=== PATIENT | female | born 1970 | race Caucasian/White ===

== ENCOUNTER 2018-12-30 02:21 | Emergency (ER) | payer OTHER ==
[~2018-12-30] VITALS: Ht 162.6 cm; Wt 111.6 kg
[2018-12-30] MEDS ORDERED: KETOROLAC 60 MG/2 ML VIAL ONE (02:39)
[2018-12-30] MEDS ORDERED: diphenhydrAMINE 50 MG/ML INJ (BENADRYL) ONE (02:39)
[2018-12-30] MEDS ORDERED: PROMETHAZINE INJ 25 MG/ML (PHENERGAN) AMP ONE (02:39)
[2018-12-30] MEDS ORDERED: DEXAMETHASONE 10 MG/ML (DECADRON) 1 ML VIAL ONE (02:40)
--- NOTE | 2018-12-30 02:40 | ED Headache ---
General Chief Complaint: Head/Cervical Problems Stated Complaint: MIGRAINE History of Present Illness Date Seen by Provider: Dec 30, 2018 Time Seen by Provider: 02:37 Initial Comments Patient presents emergency department for evaluation of a left-sided postauricular headache that has been going on for weeks. She has a history of migraine headaches and says this is the same as prior migraine headaches except this one is lasting longer than usual. She went to an urgent care several weeks ago and was given a shot of Toradol stopped headache for 5 days but then it started up again. Her primary care provider gives her [place] and Relpax for her migraine headaches but says it has not been helping. She says that she has nausea and photophobia but no vomiting vision changes unilateral weakness numbness tingling fevers chills or neck stiffness. She says that she cannot sleep tonight because the headache would not go away despite her usual treatment. She says she does not follow with a neurologist. She is in no obvious distress smiling and laughing and has normal vital signs. Allergies and Home Medications Patient Home Medication List Home Medication List Reviewed: Yes Review of Systems Review of Systems Constitutional: no symptoms reported Eyes: Photophobia Respiratory: no symptoms reported Cardiovascular: no symptoms reported Gastrointestinal: nausea Musculoskeletal: no symptoms reported Skin: no symptoms reported Psychiatric/Neurological: Headache All Other Systems Reviewed Negative Unless Noted: Yes Past Mphsoex-Qollab-Aynukn Hx Patient Social History Recent Foreign Travel: No Contact w/Someone Who Travel: No Physical Exam Vital Signs Capillary Refill : Height, Weight, BMI Height: '" Weight: lbs. oz. kg; BMI Method: General Appearance: WD/WN, no apparent distress HEENT: PERRL/EOMI Neck: full range of motion, supple Cardiovascular: regular rate, rhythm Respiratory: no respiratory distress Gastrointestinal: non tender, soft Psychiatric: alert, oriented x 3 Crainal Nerves: normal speech, PERRL Coordination/Gait: normal finger to nose Motor/Sensory: no motor deficit, no sensory deficit Skin: normal color, warm/dry Progress/Results/Core Measures Progress Progress Note : Progress Note Patient given Toradol Benadryl Phenergan and Decadron and patient feels better. Her repeat neurologic exam is normal and she continues to have normal vital signs. Given patient appears well with normal vital signs benign physical exam she'll be discharged in stable condition told to follow primary care provider and/or neurologist and come back to the ED sooner with worsening pain neurologic changes or other general concerns. Departure Impression Primary Impression: Migraine Qualified Codes: G43.909 - Migraine, unspecified, not intractable, without status migrainosus Disposition: 01 HOME, SELF-CARE Condition: Stable Departure-Patient Inst. Referrals: NO,LOCAL PHYSICIAN (PCP/Family) Primary Care Physician Patient Instructions: Migraine Headache (DC) LAURA DAVALOS DO Dec 30, 2018 02:40
[2018-12-30] MEDS ORDERED: DEXAMETHASONE 4 MG/ML SDV (DECADRON) PO ONE (02:45)
[2018-12-30] MEDS ORDERED: KETOROLAC 60 MG/2 ML VIAL IM ONE (02:45)
[2018-12-30] MEDS ORDERED: diphenhydrAMINE 50 MG/ML INJ (BENADRYL) IM ONE (02:45)
[2018-12-30] MEDS ORDERED: PROMETHAZINE INJ 25 MG/ML (PHENERGAN) AMP IM ONE (02:45)
[2018-12-30 03:06] VITALS: BP 128/88
--- NOTE | 2018-12-30 03:12 | NUR ---
PT. WAS GIVEN 50 MG. BENADRYL, 25 MG. PHENERGAN, 60 MG. TORADOL, AND 10 MG. DECADRON
== END 2018-12-30 03:08 | disposition home or self-care (01) ==
LOC: EDUNIT# 02:21 → ER FS 02:24
DX: G43.909 Migraine, unspecified, not intractable, without status migrainosus (principal)

== ENCOUNTER 2019-01-12 05:32 | Outpatient (CLI) | payer OTHER ==
[~2019-01-12] VITALS: Ht 162.6 cm; Wt 111.6 kg
[2019-01-12] MEDS ORDERED: LORA10TA7 PO (11:19)
[2019-01-12] MEDS ORDERED: FLUO40CA12 PO (11:19)
[2019-01-12] MEDS ORDERED: TRIA1CAP4 PO (11:19)
[2019-01-12] MEDS ORDERED: POTA15TA9 PO (11:19)
[2019-01-12] MEDS ORDERED: FLUT9.9S NS (11:19)
[2019-01-12] MEDS ORDERED: ZOLP10TA PO (11:19)
[2019-01-12] MEDS ORDERED: PROP20TA5 PO (11:19)
[2019-01-12] MEDS ORDERED: CYCL10TA9 PO (11:19)
[2019-01-12] MEDS ORDERED: ESTR1TAB24 PO (11:19)
[2019-01-12] MEDS ORDERED: ALLO300T2 PO (11:19)
== END 2019-01-12 11:29 | disposition home or self-care (01) ==
LOC: PREOP 05:32
PROVIDERS: ATTEND Urology
DX: Z01.818 Encounter for other preprocedural examination (principal)

== ENCOUNTER 2019-01-18 07:00 | Day surgery (SDC) | payer OTHER ==
[~2019-01-18] VITALS: Ht 162.6 cm; Wt 111.6 kg
[2019-01-18] VITALS (11 sets, daily range): BP systolic 93–127; BP diastolic 54–74
[~2019-01-18 07:00] MED LIST: ALLO300T2 PO; CYCL10TA9 PO; ESTR1TAB24 PO; FLUO40CA12 PO; FLUT9.9S NS; LORA10TA7 PO; POTA15TA9 PO; PROP20TA5 PO; TRIA1CAP4 PO; ZOLP10TA PO
[2019-01-18] MEDS ORDERED: LACTATED RINGERS 1,000 ML IV PRN (07:14)
--- NOTE | 2019-01-18 07:14 | Progress Note-Pre Operative ---
Pre-Operative Progress Note H&P Reviewed The H&P was reviewed, patient examined and no changes noted. Date Seen by Provider: Jan 18, 2019 Time Seen by Provider: 07:13 Date H&P Reviewed: Jan 18, 2019 Time H&P Reviewed: 07:13 Pre-Operative Diagnosis: CYSTOCELE AND ZULEIKA KAMILLA BETANCUR MD Jan 18, 2019 07:14
[2019-01-18] MEDS ORDERED: cefTRIAXone FOR IV USE 1,000 MG in WATER (STERILE) FOR INJECTION 10 ML IV ONE (07:15)
--- NOTE | 2019-01-18 07:20 | Progress Note-Post Operative ---
Post-Operative Progess Note Surgeon (s)/Picker Box Operator (s) Surgeon KAMILLA BETANCUR MD Picker Box Operator: NONE Pre-Operative Diagnosis CYSTOCELE AND ZULEIKA Post-Operative Diagnosis SAME Procedure & Operative Findings Date of Procedure 01/18/19 Procedure Performed/Findings ANTERIOR REPAIR, PVS AND CYSTOSCOPY Anesthesia Type GENERAL Estimated Blood Loss Estimated blood loss (mL): LESS THAN 50CC Specimens/Packing Specimens Removed NONE TO PATHOLOGY Packing: ESTRACE VAGINAL PACK KAMILLA BETANCUR MD Jan 18, 2019 07:19
[2019-01-18] MEDS ORDERED: CYCLOBENZAPRINE 10 MG (FLEXERIL) TAB PO PRN (07:30)
[2019-01-18] MEDS ORDERED: ESTRADIOL VAGINAL CREAM 42.5 GM (ESTRACE) VG ONE (08:05)
[2019-01-18] MEDS ORDERED: LIDOCAINE/EPI 1%-1:100,000 (XYLOCAINE) 20ML ONE (08:05)
[2019-01-18] MEDS ORDERED: fentaNYL INJECTION 100 MCG/2 ML AMP ONE ×2 (08:26→09:02)
[2019-01-18] MEDS ORDERED: MIDAZOLAM 2 MG/2 ML (VERSED) VIAL ONE (08:26)
[2019-01-18] MEDS ORDERED: NON-FORMULARY MEDICATION 1 EA EA (Fluticasone Propionate (Flonase Allergy Relief) 1 SPRAY) NS SCH (09:00)
[2019-01-18] MEDS ORDERED: NON-FORMULARY MEDICATION 1 EA EA (Triamterene/Hydrochlorothiazid (Triamterene-Hctz 37.5-25 PO SCH (09:00)
[2019-01-18] MEDS ORDERED: NON-FORMULARY MEDICATION 1 EA EA (Potassium Citrate (Potassium Citrate ER) 15 MEQ) PO SCH (09:00)
[2019-01-18] MEDS ORDERED: PROPRANOLOL 20 MG (INDERAL) TABLET PO SCH (09:00)
[2019-01-18] MEDS ORDERED: LORATADINE (CLARITIN) 10 MG TAB PO SCH (09:00)
[2019-01-18] MEDS ORDERED: ROCURONIUM 10 MG/ML 5 ML SYRINGE IV ONE (09:07)
[2019-01-18] MEDS ORDERED: SEVOFLURANE (ULTANE) 15 ML INHAL SOLN ONE (09:07)
[2019-01-18] MEDS ORDERED: NEOSTIGMINE 3 MG/3 ML VIAL ONE ×2 (09:07→09:26)
[2019-01-18] MEDS ORDERED: GLYCOPYRROLATE 0.2 MG/ML (ROBINUL) 2 ML VIAL ONE (09:07)
[2019-01-18] MEDS ORDERED: proPOfol 200 MG/20 ML (DIPRIVAN) VIAL IV ONE (09:07)
[2019-01-18] MEDS ORDERED: LIDOCAINE PF 2% 5 ML (XYLOCAINE) VIAL ONE (09:07)
[2019-01-18] MEDS: LACTATED RINGERS 1,000 ML IV SCH ×3 (09:14→21:41)
[2019-01-18] MEDS ORDERED: KETOROLAC 30 MG/ML VIAL ONE (09:27)
[2019-01-18] MEDS: KETOROLAC 30 MG/ML VIAL IV PRN ×3 (09:35→21:47)
--- NOTE | 2019-01-18 10:40 | NUR ---
RAFI WEINBERG admitted to room 3306-1 VIA PT BED ACC BY NICOLÁS TURCIOS AFTER AN ANTERIOR REPAIR, CYSTOSCOPY AND PUBO-VAGINAL SLING TODAY BY DR. BETANCUR. SULTANARAFI L introduced to surroundings, call light, bed controls, phone, TV, temperature control, lights, meal times, smoking policy, visitor policy, side rail policy, bathrooms and showers. Patient Rights given to patient in the handbook.
--- NOTE | 2019-01-18 10:45 | NUR ---
REPORT TO MADALYN RUSSELL RN R/T THIS RN UNAVAILABLE FOR A FEW MINUTES.
--- NOTE | 2019-01-18 11:00 | NUR ---
ASSESSMENT COMPLETED. VSS. A/O X4. COLOR PINK, SKIN W/D. RESP. EASY. DENIES PAIN AT THIS TIME. DESAI PATENT TO DD WITH CLEAR YELLOW URINE. VAGINAL PACKING IN PLACE. NO BLEEDING ON V-PAD OR TAIL OF PACK. THIGH-HI SCDS ON BILATERALLY. AT BEDSIDE. ORIENTED TO SURROUNDINGS, CALL LIGHT OPERATION, AND ROOM SERVICE PROCEDURE WITH STATED UNDERSTANDING.
--- NOTE | 2019-01-18 12:00 | NUR ---
RT NOTIFIED OF NEED FOR INCENTIVE SPIROMETRY FOR THIS PT.
--- NOTE | 2019-01-18 12:30 | NUR ---
VSS. CONTINUES TO DENY PAIN. DESAI PATENT TO DD WITH CLEAR DARK YELLOW URINE. TAKING FLUIDS WELL.
[2019-01-18] MEDS ORDERED: PATIENT MAY USE OWN MEDS, ALL MC SCH (12:45)
--- NOTE | 2019-01-18 13:01 | OPERATIVE REPORT ---
DATE OF SERVICE: 01/18/2019 PREOPERATIVE DIAGNOSES: 1. Cystocele. 2. Stress urinary incontinence. POSTOPERATIVE DIAGNOSES: 1. Cystocele. 2. Stress urinary incontinence. OPERATION PERFORMED: Anterior repair, pubovaginal sling and cystoscopy. SURGEON: Liborio Betancur MD. ANESTHESIA: General. COMPLICATIONS: None. DESCRIPTION OF PROCEDURE: Under satisfactory general anesthesia, the patient in extended lithotomy position, genitalia were prepped and draped in the usual sterile fashion with a vaginal prep. Catheter was inserted and the bladder was drained. Anterior vaginal wall was infiltrated with 2% lidocaine jelly and epinephrine. An incision was made vertically in the anterior vaginal wall, mucosa was dissected off the fascia, carried all the way distal to the cervical stump. The fascia was approximated with interrupted 2-0 Vicryl. There was a good support and approximation of the fascia. Then, the pubovaginal sling, Solyx device was passed using the described technique. Sling was sitting nicely under the mid urethra with no twisting, tension and passage of a curved hemostat easily between it and the underlying tissues. Catheter was removed. A cystoscopy confirmed intact bladder. Ureteric orifices, urethra with no foreign body and presence of the sling under the mid urethra. The bladder was left half full to perform a Valsalva maneuver manually after removing the scope and it was negative. This is the James catheter was reinserted. The excess vaginal mucosa was excised sharply and then the mucosa was approximated with a running 2-0 Vicryl Rapide type suture. Estimated blood loss was less than 50 mL, none of which was replaced. Needle and sponge counts correct x2. An Estrace vaginal pack was inserted. The catheter was left indwelling and draining clear urine at all time. The patient tolerated the procedure and anesthesia well and was sent to recovery room in stable condition. Job ID: [id number] DocumentID: [id number] Dictated Date: 01/18/2019 09:40:37 Loader Operator/Ground Leader Date: 01/18/2019 13:00:45 Dictated By: LIBORIO BETANCUR MD
[2019-01-18] MEDS ORDERED: LACTATED RINGERS 1,000 ML IV ONE (13:08)
--- NOTE | 2019-01-18 13:20 | NUR ---
PT'S SPOUSE BROUGHT IN HER HOME MEDICATIONS. SENT TO PHARMACY. PT EATING FOOD BROUGHT IN BY SPOUSE.
[2019-01-18] MEDS ORDERED: HYDROcodone/APAP 10 MG/325 MG (LORTAB) TAB PO ONE (13:25)
[2019-01-18] MEDS: HYDROcodone/APAP 10 MG/325 MG (LORTAB) TAB PO PRN ×2 (13:35→19:43)
--- NOTE | 2019-01-18 13:35 | NUR ---
LORTAB 10/325 2 TABLETS P.O. FOR C/O PELVIC PRESSURE/DISCOMFORT.
[2019-01-18] MEDS: FLUOXETINE 40 MG CAPSULE PO SCH (14:28)
[2019-01-18] MEDS: TRIAMTERENE HCTZ PO SCH (14:29)
[2019-01-18] MEDS: ESTRADIOL 1 MG TAB (ESTRACE) PO SCH (14:31)
[2019-01-18] MEDS: PROPRANOLOL 20 MG (INDERAL) TABLET PO SCH ×2 (14:33→23:54)
[2019-01-18] MEDS: ALLOPURINOL 300 MG (ZYLOPRIM) TAB PO SCH (14:33)
--- NOTE | 2019-01-18 15:00 | NUR ---
PERICARE PERFORMED WITH PAD CHANGE. LT VAGINAL BLEEDING NOTED. VAGINAL PACKING INTACT.
--- NOTE | 2019-01-18 16:30 | NUR ---
RESTING WITH EYES CLOSED. ROOM DARKENED PER PT REQUEST.
--- NOTE | 2019-01-18 18:00 | NUR ---
GOOD URINE OUTPUT. URINE MORE DILUTE AT THIS TIME.
--- NOTE | 2019-01-18 18:15 | NUR ---
VAGINAL PACKING REMAINS INTACT. MINIMAL VAGINAL BLEEDING.
--- NOTE | 2019-01-18 18:38 | NUR ---
DR. BETANCUR NOTIFIED OF PT'S DESIRE NOT TO TAKE FLONASE AND POTASSIUM UNTIL SHE LEAVES TOMORROW. ORDER TO D/C.
[2019-01-18] MEDS ORDERED: NON-FORMULARY MEDICATION 1 EA EA (Zolpidem Tartrate (Ambien) 10 MG) PO SCH (21:00)
[2019-01-18] MEDS: ZOLPIDEM 5 MG (AMBIEN) TAB PO SCH ×2 (23:55→23:59)
[2019-01-19] VITALS: BP 84/55
--- NOTE | 2019-01-19 | NUR ---
Pt took own ambien at this time. 10mg PO.
[2019-01-19] MEDS: HYDROcodone/APAP 10 MG/325 MG (LORTAB) TAB PO PRN ×2 (01:50→08:42)
[2019-01-19 04:00] VITALS: BP 100/63
[2019-01-19] MEDS: KETOROLAC 30 MG/ML VIAL IV PRN ×2 (04:12→08:42)
[2019-01-19] MEDS ORDERED: LEVOFLOXACIN 250 MG/50 ML IVPB 50 ML IV SCH (07:20)
[2019-01-19 08:08] VITALS: BP 92/48
--- NOTE | 2019-01-19 08:25 | NUR ---
up to BR with standby assist x3. tolerated well. unable to void @ time. will cont to monitor.
[2019-01-19] MEDS: ESTRADIOL 1 MG TAB (ESTRACE) PO SCH (08:27)
[2019-01-19] MEDS: PROPRANOLOL 20 MG (INDERAL) TABLET PO SCH (08:28)
[2019-01-19] MEDS: FLUOXETINE 40 MG CAPSULE PO SCH (08:29)
[2019-01-19] MEDS: TRIAMTERENE HCTZ PO SCH (08:29)
[2019-01-19] MEDS: ALLOPURINOL 300 MG (ZYLOPRIM) TAB PO SCH (08:31)
--- NOTE | 2019-01-19 08:35 | NUR ---
bladder scan done. 44ml noted. pt reports cramping. scheduled and prn medications given, see eMar for further.
--- NOTE | 2019-01-19 10:05 | NUR ---
up to BR. voided, missed urine collection hat.
--- NOTE | 2019-01-19 10:10 | NUR ---
PVR of 110cc urine noted.
--- NOTE | 2019-01-19 10:55 | NUR ---
here. update given on pt's status. dismissal order received.
--- NOTE | 2019-01-19 11:00 | NUR ---
up to BR. 450cc urine noted. PVR of 46cc noted.
[2019-01-19] MEDS ORDERED: CIPR-225 PO (11:15)
--- NOTE | 2019-01-19 11:31 | Progress Note - Urology ---
Progress Note-Urology Progress Notes/Assess & Plan Progress/Assessment & Plan VOIDING WELL. EMPTIES WELL. PVR 46CC. DRY, HAPPY. HOME WITH INSTRUCTIONS Final Diagnosis CYSTOCELE AND INCONTINENCE KAMILLA BETANCUR MD Jan 19, 2019 11:31
--- NOTE | 2019-01-19 11:34 | NUR ---
dismissal instructions given, verbalizes understanding. reviewed follow up appointment & Rx's. signature page signed, placed on chart.
[2019-01-19 12:21] VITALS: BP 96/52
--- NOTE | 2019-01-19 12:45 | NUR ---
Cipro Rx called into [facility] pharmacy in [place], [place] per pt's request. 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 pt stable with no sx's of distress noted.
== END 2019-01-19 12:45 | disposition home or self-care (01) ==
LOC: SDC 07:00 → WS 10:40 → SDC 01-19 12:45
PROVIDERS: ATTEND Urology
DX: N81.10 Cystocele, unspecified (principal); G43.909 Migraine, unspecified, not intractable, without status migrainosus; Q61.5 Medullary cystic kidney; I10 Essential (primary) hypertension; F32.9 Major depressive disorder, single episode, unspecified; Z88.0 Allergy status to penicillin; Z90.710 Acquired absence of both cervix and uterus; Z90.79 Acquired absence of other genital organ(s); Z90.722 Acquired absence of ovaries, bilateral; Z79.52 Long term (current) use of systemic steroids; Z79.899 Other long term (current) drug therapy
CPT/HCPCS: 87081; 94664

== ENCOUNTER → 2019-01-24 | Outpatient (CLI) | payer OTHER ==
--- NOTE | 2019-01-18 12:46 | Anesthesia-General Post-Op ---
General Patient Condition Mental Status/LOC: Same as Preop Cardiovascular: Satisfactory Nausea/Vomiting: Absent Respiratory: Satisfactory Pain: Controlled Complications: Absent Post Op Complications Complications None Follow Up Care/Instructions Patient Instructions None needed. Anesthesia/Patient Condition Patient Condition Patient is doing well, no complaints, stable vital signs, no apparent adverse anesthesia problems. No complications reported per nursing. KENN MOODY CRNA Jan 18, 2019 12:46
[~2019-01-24] MED LIST changes: +CIPR-225 PO; +HYDROmorphone 2 MG/ML VIAL (DILAUDID) IV ONE; +ONDANSETRON 4 MG/2 ML (SDV) Z0FRAN IVP PRN
--- NOTE | 2019-01-24 11:23 | Diagnostic Imaging Report ---
PROCEDURE: MR imaging of the brain without contrast. TECHNIQUE: Multiplanar, multisequence MR imaging of the brain was performed without contrast. INDICATION: Migraine headaches. No prior studies are available for comparison. FINDINGS: The ventricles and sulci are within normal limits. No diffusion restriction is seen. Normal expected flow-voids within the carotid siphons are seen. There is a small focus of subcortical T2 and FLAIR signal in the right frontoparietal lobe. Findings are nonspecific but could be owing to chronic microvascular ischemia. There is no midline shift. There is no acute intra-axial or extra-axial hemorrhage identified. Corpus callosum is unremarkable. The sella and parasellar structures are unremarkable. IMPRESSION: Essentially unremarkable noncontrast MRI of the brain. Dictated by: Dictated on workstation # [id number]
== END ==
LOC: RAD 10:03
PROVIDERS: ATTEND Nurse Practitioner Family
DX: G43.909 Migraine, unspecified, not intractable, without status migrainosus (principal)
CPT/HCPCS: 70551

== ENCOUNTER → 2019-03-18 | Outpatient (CLI) | payer OTHER ==
[~2019-03-18] MED LIST changes: -HYDROmorphone 2 MG/ML VIAL (DILAUDID) IV ONE; -ONDANSETRON 4 MG/2 ML (SDV) Z0FRAN IVP PRN
== END | disposition home or self-care (01) ==
LOC: PREOP 14:28
PROVIDERS: ATTEND Surgery
DX: Z01.818 Encounter for other preprocedural examination (principal)

== ENCOUNTER 2019-03-23 08:34 | Day surgery (SDC) | payer OTHER ==
--- NOTE | 2019-03-16 06:33 | HISTORY AND PHYSICAL ---
DATE OF SERVICE: 03/09/2019 DATE OF SURGERY: 03/23/2019 HISTORY OF PRESENT ILLNESS: The patient is a 48-year-old female who is being seen in need of a screening colonoscopy. The patient reports that she did have a colonoscopy approximately 20 years ago and reports at that time, they did find some diverticulosis. She reports that since that time she has not had any diarrhea, but has had some occasional issues with constipation. She does report that she will at times gets some occasional episodes of bright red blood in her stool and reports that she is constipated and believed this to be hemorrhoidal. She does report a family history of colon cancer with her maternal grandfather having the disease. She denies any abdominal pain. She reports that she did recently have her fecal occult blood obtained, which did come back positive. PAST MEDICAL HISTORY: Endometriosis, anxiety, depression, migraines, and renal calculi. PAST SURGICAL HISTORY: Open complete hysterectomy in 2001, in 1995, laparoscopic Porsche-en-Y gastric bypass in 2005, abdomioplasty with a bilateral breast lift and removal of excess skin from upper arms in 2007, bladder sling placement in 01/2019. ALLERGIES: PENICILLIN. MEDICATIONS: Prozac, Ambien, Inderal, Dyazide and allopurinol. SOCIAL HISTORY: Negative for smoke, social for alcohol. FAMILY HISTORY: Mother, ovarian cancer. Paternal grandfather, colon cancer. Maternal and paternal grandmother had a myocardial infarction. Vital signs - blood pressure is 132/80. Current weight is 246, height 5 feet 3 inches. REVIEW OF SYSTEMS: This is a well-nourished female, in no acute distress. She is not experiencing any shortness of breath or difficulty breathing. No chest pain, palpitations or diaphoresis. No nausea, vomiting or abdominal pain. No diarrhea, but does report a history of constipation. She does report occasional episodes of bright red blood per rectum. No dark tarry stools. No fever or chills. No recent inadvertent weight loss. All other review of systems is negative. PHYSICAL EXAMINATION: CHEST: Clear. Good breath sounds bilaterally. HEART: Regular, no murmurs. EXTREMITIES: No lower extremity edema. Negative Homans sign. HEENT: Scleral icterus. No cervical or axillary adenopathy. ABDOMEN: Soft, nontender, nondistended. SKIN: Warm, dry and pink. NEUROLOGIC: Awake, alert, and oriented x3. ASSESSMENT AND PLAN: A 48-year-old female who is in need of a screening colonoscopy. The risks and benefits of the procedure as well as the procedure and home care instructions were explained to the patient. The patient verbalized understanding of instructions and agrees to this plan. At this time, we will proceed with scheduling the patient for a screening colonoscopy. Job ID: [id number] DocumentID: [id number] Dictated Date: 03/09/2019 14:00:32 Fondant Puff Maker Date: 03/09/2019 15:06:48 Dictated By: CLIVE MURPHY
[~2019-03-23] VITALS: Ht 160 cm; Wt 123.0 kg
[2019-03-23] VITALS (13 sets, daily range): BP systolic 104–131; BP diastolic 56–85
[2019-03-23] MEDS ORDERED: NS IV 500 ML 500 ML IV PRN (08:36)
[2019-03-23] MEDS ORDERED: NS IV 500 ML 500 ML ONE (08:43)
[2019-03-23] MEDS ORDERED: LIDOCAINE JELLY 2% 6 ML SYRINGE MM PRN (08:45)
[2019-03-23] MEDS ORDERED: fentaNYL INJECTION 100 MCG/2 ML AMP IVP ONE (08:45)
[2019-03-23] MEDS ORDERED: fentaNYL INJECTION 100 MCG/2 ML AMP ONE (10:28)
[2019-03-23] MEDS ORDERED: MIDAZOLAM 5 MG/5 ML (VERSED) VIAL ONE ×3 (10:29→10:56)
[2019-03-23] MEDS ORDERED: LIDOCAINE JELLY 2% 6 ML SYRINGE ONE (10:29)
[2019-03-23] MEDS: MIDAZOLAM 5 MG/5 ML (VERSED) VIAL IV PRN ×4 (10:33→10:52)
--- NOTE | 2019-03-23 10:47 | Progress Note-Pre Operative ---
Pre-Operative Progress Note H&P Reviewed The H&P was reviewed, patient examined and no changes noted. Date Seen by Provider: Mar 23, 2019 Time Seen by Provider: 10:00 Date H&P Reviewed: Mar 23, 2019 Time H&P Reviewed: 10:00 Pre-Operative Diagnosis: screening o SANTOSH BARBOSA MD Mar 23, 2019 10:47 POS
--- NOTE | 2019-03-23 10:47 | Conscious Sedation/ASA ---
Conscious Sedation Pre-Proced Time 10:00 ASA Score 2 For ASA 3 and 4: Consider anesthesia and medical clearance. Also, for patients with a history of failed moderate sedation consider anesthesia. Airway Lungs Heart ASA score ASA 1: a normal healthy patient ASA 2: a patient with a mild systemic disease (mid diabetes, controlled hypertension, obesity ASA 3: a patient with a severe systemic disease that limits activity (angina, COPD, prior Myocardial infarction) ASA 4: a patient with an incapacitating disease that is a constant threat to life (CHF, renal failure) ASA 5: a moribund patient not expected to survive 24 hrs. (ruptured aneurysm) ASA 6: a declared brain- patient whose organs are being harvested. For emergent operations, add the letter E after the classification Mallampati Classification Grade 2 Sedation Plan Analgesia, Amnesia, Plan communicated to team members, Discussed options with patient/fam, Discussed risks with patient/fam The patient is an appropriate candidate to undergo the planned procedure, sedation, and anesthesia. The patient immediately re-assessed prior to indication. SANTOSH BARBOSA MD Mar 23, 2019 10:47 POS
--- NOTE | 2019-03-23 10:49 | Discharge Inst-Surgical ---
D/C Lap Instructions-CHELSEY Follow Up Activity as tolerated Avoid Alcohol, Caffeine, Spicy Mogul and Acid foods. Drink 64 fluid oz or more of fluids per day. Symptoms to Report: Fever over 101 degree F, Nausea/Vomiting If any problems/questions: Contact your physician or go to Emergency Room SANTOSH BARBOSA MD Mar 23, 2019 10:49 POS
[2019-03-23] MEDS ORDERED: ONDANSETRON 4 MG/2 ML (SDV) Z0FRAN IVP PRN (11:00)
[2019-03-23] MEDS ORDERED: HYDROcodone/APAP 5 MG/325 MG (LORTAB) TAB PO PRN (11:00)
[2019-03-23] MEDS ORDERED: morphine INJ 10 MG/ML 1ML (SYR OR VIAL) IVP PRN ×2 (11:00)
[2019-03-23] MEDS ORDERED: ACETAMINOPHEN 325 MG TABLET PO PRN (11:00)
--- NOTE | 2019-03-23 11:23 | Progress Note-Post Operative ---
Post-Operative Progess Note Surgeon (s)/Change Director (s) Surgeon SANTOSH BARBOSA MD Change Director: none Pre-Operative Diagnosis screening colo Post-Operative Diagnosis mild chronic stage 1 ext and int hemorrhoids, mild-moderate sigmoid diverticulosis. Procedure & Operative Findings Date of Procedure 03/23/19 Procedure Performed/Findings colonoscopy Anesthesia Type cs Estimated Blood Loss Estimated blood loss (mL): minimal Specimens/Packing Specimens Removed none SANTOSH BARBOSA MD Mar 23, 2019 11:23 POS
--- NOTE | 2019-03-23 14:51 | OPERATIVE REPORT ---
DATE OF SERVICE: 03/23/2019 ATTENDING PRIMARY LINEN ROOM CUSTODIAN: Lianna Thornton APRN PREOPERATIVE DIAGNOSIS: Screening colonoscopy. POSTOPERATIVE DIAGNOSES: Mild chronic stage I external and internal hemorrhoids, mild to moderate sigmoid diverticulosis. PROCEDURE: Colonoscopy. SURGEON: Santosh Barbosa MD ANESTHESIA: Conscious sedation. ESTIMATED BLOOD LOSS: Minimal. FINDINGS: Mild chronic stage I external and internal hemorrhoids, mild to moderate sigmoid diverticulosis. DISPOSITION: The patient tolerated the procedure well. INDICATIONS: The patient is a 48-year-old female in need of a screening colonoscopy. She did have a colonoscopy approximately 20 years ago due to crampy abdominal pain. At that time, she was having issues with endometriosis. At that time, the colonoscopy did show some diverticulosis; however, no other abnormalities. She does have a remote family history of colon cancer with her maternal grandfather having the disease. She also did have a Hemoccult test done, which was positive. DESCRIPTION OF PROCEDURE: The patient was brought to the endoscopy suite, laid in the left lateral decubitus position. After adequate IV pain and sedative medications and conscious sedation anesthesia, a digital rectal examination was performed. Mild chronic stage I external and internal hemorrhoids were identified, which were not actively edematous nor inflamed and no bleeding. Normal sphincter tone was felt and there were no palpable masses. The endoscope was then intubated to the anus and rectum was gently insufflated. The endoscope was then advanced through the valves of [place] of the rectum with no polyps or any neoplasms identified. Through the sigmoid colon, mild to moderate sigmoid diverticulosis was identified. There were no mucosal inflammatory changes to indicate any active diverticulitis. The endoscope was then advanced to the remainder of the descending, transverse and ascending colon to the cecum. These segments were normal. There were no polyps nor any neoplasms identified throughout the colon or rectum. The endoscope was then slowly withdrawn while taking a second look and suctioning of residual air with no additional findings. The patient tolerated the procedure well. We will recommend medical management with a high fiber diet with 25 grams of fiber daily as well as significant amounts of water to promote soft stools on a daily basis. The goal is to prevent any complications of diverticulosis. No polyps or any neoplasms identified and she does not need another colonoscopy for another 10 years if she is asymptomatic. Job ID: [id number] DocumentID: [id number] Dictated Date: 03/23/2019 11:13:34 Enterprise Analyst Date: 03/23/2019 14:50:21 Dictated By: SANTOSH BARBOSA MD
== END 2019-03-23 11:40 | disposition home or self-care (01) ==
LOC: ENDO 08:34
PROVIDERS: ATTEND Surgery
DX: Z12.11 Encounter for screening for malignant neoplasm of colon (principal); K64.0 First degree hemorrhoids; K64.8 Other hemorrhoids; K57.30 Diverticulosis of large intestine without perforation or abscess without bleeding; F41.9 Anxiety disorder, unspecified; F32.9 Major depressive disorder, single episode, unspecified; G43.909 Migraine, unspecified, not intractable, without status migrainosus; Z88.0 Allergy status to penicillin; Z90.710 Acquired absence of both cervix and uterus; Z79.899 Other long term (current) drug therapy; Z80.41 Family history of malignant neoplasm of ovary; Z80.0 Family history of malignant neoplasm of digestive organs; Z82.49 Family history of ischemic heart disease and other diseases of the circulatory system

== ENCOUNTER 2019-03-30 07:16 | Emergency (ER) | payer OTHER ==
[~2019-03-30] VITALS: Ht 162 cm; Wt 117.0 kg
[2019-03-30 07:51] LABS: BILIRUBIN,URINE NEGATIVE (NEGATIVE); CLARITY,URINE SL CLOUDY; COLOR,URINE YELLOW; GLUCOSE, URINE (UA) NEGATIVE (NEGATIVE); KETONES,URINE NEGATIVE (NEGATIVE); LEUKOCYTE ESTERASE ,URINE 2+ (NEGATIVE); NITRITE,URINE NEGATIVE (NEGATIVE); PH,URINE 6.5 (5-9); PROTEIN,URINE NEGATIVE (NEGATIVE)
[2019-03-30 07:59] LABS: BACTERIA,URINE FEW /HPF; SQUAMOUS EPITHELIAL CELL,UR 0-2 /HPF; WBC,URINE 25-50 /HPF
[2019-03-30] MEDS ORDERED: CIPR500T4 PO (08:16)
[2019-03-30] MEDS ORDERED: PHEN-640 PO (08:16)
--- NOTE | 2019-03-30 08:17 | ED GU-Female ---
General Chief Complaint: - Urinary Stated Complaint: PAINFUL URINATION; Nursing Triage Note: AMB TO ROOM C/O UTI SYMPTOMS WITH BLOOD IN URINE. Nursing Sepsis Screen: No Definite Risk Source: patient Exam Limitations: no limitations History of Present Illness Date Seen by Provider: Mar 30, 2019 Time Seen by Provider: 07:31 Initial Comments This 48-year-old woman presents to the emergency room with complaints of he maturia, dysuria, and frequency that started around 02:00. In January she had a bladder sling and repair performed by Dr. Betancur. Last week she had a colonoscopy. Pain seems to be in the urethral area and is most intense immediately after urination. She also complains of pelvic aching which she identifies as her bladder. She presently takes a thiazide diuretic and allopurinol for prevention of kidney stones. She does not believe this pain feels like a kidney stone. She also takes propranolol for migraine prophylaxis. She had an appointment with Dr. Betancur on Thursday to follow-up from her surgery but did not go due to the severe winter weather. She denies any fevers. Her primary care provider is Lianna Israel at [facility] in [place]. Allergies and Home Medications Allergies Coded Allergies: Penicillins (Verified Allergy, Unknown, FROM CHILDHOOD, 01/12/19) Home Medications Allopurinol 300 Mg Tablet, 300 MG PO DAILY, (Reported) Ciprofloxacin HCl 500 Mg Tablet, 500 MG PO BID Prescribed by: LUCAS POPE on 03/30/19 0816 Cyclobenzaprine HCl 10 Mg Tablet, 10 MG PO PRN PRN for SPASMS, (Reported) Estradiol 1 Mg Tablet, 1 MG PO DAILY, (Reported) Fluoxetine HCl 40 Mg Capsule, 40 MG PO DAILY, (Reported) Fluticasone Propionate 9.9 Ml [place].susp, 1 SPRAY NS DAILY, (Reported) 1 SPRAY EACH NARE DAILY Loratadine 10 Mg Tablet, 10 MG PO DAILY, (Reported) Phenazopyridine HCl 200 Mg Tablet, 1 TAB PO TID PRN for pain Prescribed by: LUCAS POPE on 03/30/19 08 Potassium Citrate 15 Meq Tab, 15 MEQ PO BID, (Reported) Propranolol HCl 20 Mg Tablet, 20 MG PO TID, (Reported) Triamterene/Hydrochlorothiazid 1 Each Capsule, 1 EACH PO DAILY, (Reported) Zolpidem Tartrate 10 Mg Tablet, 10 MG PO HS, (Reported) Patient Home Medication List Home Medication List Reviewed: Yes Review of Systems Review of Systems Constitutional: no symptoms reported EENTM: no symptoms reported Respiratory: no symptoms reported Cardiovascular: no symptoms reported Gastrointestinal: see HPI Genitourinary: see HPI : No Musculoskeletal: no symptoms reported Skin: no symptoms reported Psychiatric/Neurological: No Symptoms Reported Endocrine: No Symptoms Reported Past Tlvxhmz-Qnyxsq-Efrwum Hx Past Med/Social Hx: Reviewed and Corrections made Patient Social History Alcohol Use: Occasionally Uses Alcohol Beverage of Choice: Beer Recreational Drug Use: No Smoking Status: Never a Smoker 2nd Hand Smoke Exposure: No Recent Foreign Travel: No Contact w/Someone Who Travel: No Recent Infectious Disease Expo: No Recent Hopitalizations: No Immunizations Up To Date Date of Influenza Vaccine: Feb 22, 2018 Seasonal Allergies Seasonal Allergies: Yes Past Medical History Surgeries: Yes (GASTRIC BYPASS, KIDNEY STONES-SEVERAL, BODY LIFT, BREAST AND ARM LIFT) Abdominal (colonoscopy), Bladder Surgery (bladder sling and pelvic repair), Section, Hysterectomy, Oophorectomy Respiratory: No Cardiac: No Neurological: Yes Headaches /Migraines Female Reproductive Disorders: Denies Sexually Transmitted Disease: No HIV/AIDS: No Genitourinary: Yes (CYSTOCELE) Kidney Stones Gastrointestinal: No Musculoskeletal: No Endocrine: No HEENT: Yes (GLASSES/CONTACTS) Loss of Vision: Denies Hearing Impairment: Denies Cancer: No Psychosocial: Yes Depression Integumentary: No Blood Disorders: No Adverse Reaction/Blood Tranf: No (N/A) Physical Exam Vital Signs Vital Signs - First Documented 03/30/19 03/30/19 07:28 08:23 Temp 36.1 Pulse 84 Resp 18 B/P (MAP) 128/106 (113) Pulse Ox 97 O2 Delivery Room Air Capillary Refill : Less Than 3 Seconds Height, Weight, BMI Height: 5'4.00" Weight: 246lbs. 0.0oz. [id number]; 44.00 BMI Method:Stated General Appearance: WD/WN, no apparent distress HEENT: normal ENT inspection Neck: normal inspection Cardiovascular: regular rate, rhythm, no edema, no murmur Respiratory: lungs clear, normal breath sounds, no respiratory distress Gastrointestinal: normal bowel sounds, soft, tenderness (minimal in the suprapubic region) Back: no CVA tenderness Extremities: normal inspection, no pedal edema Neurologic/Psychiatric: clinical research tech II-XII nml as tested, no motor/sensory deficits, alert, normal mood/affect, oriented x 3 Skin: normal color, warm/dry Progress/Results/Core Measures Suspected Sepsis Recent Fever Within 48 Hours: No Infection Criteria Present: None New/Unexplained Altered Menta: No Sepsis Screen: No Definite Risk SIRS Temperature: Pulse: 84 Respiratory Rate: 18 Blood Pressure 128 /106 Mean: 113 Results/Orders Lab Results Laboratory Tests Test 03/30/19 07:42 Range/Units Urine Color YELLOW Urine Clarity SL CLOUDY Urine pH 6.5 5-9 Urine Specific [place] 1.010 L 1.016-1.022 Urine Protein NEGATIVE NEGATIVE Urine Glucose (UA) NEGATIVE NEGATIVE Urine Ketones NEGATIVE NEGATIVE Urine Nitrite NEGATIVE NEGATIVE Urine Bilirubin NEGATIVE NEGATIVE Urine Urobilinogen 0.2 < = 1.0 MG/DL Urine Leukocyte Esterase 2+ H NEGATIVE Urine RBC (Auto) 3+ H NEGATIVE Urine RBC 5-10 H /HPF Urine WBC 25-50 H /HPF Urine Squamous Epithelial Cells 0-2 /HPF Urine Crystals NONE /LPF Urine Bacteria FEW H /HPF Urine Casts NONE /LPF Urine Mucus NEGATIVE /LPF Urine Culture Indicated YES My Orders Orders - LUCAS EDGAR MD Ua Culture If Indicated (03/30/19 07:32) Urine Culture (03/30/19 07:42) Vital Signs/I&O 03/30/19 03/30/19 07:28 08:23 Temp 36.1 Pulse 84 76 Resp 18 18 B/P (MAP) 128/106 (113) 114/75 Pulse Ox 97 94 O2 Delivery Room Air Capillary Refill : Less Than 3 Seconds Blood Pressure Mean: 113 POS Progress Note : Progress Note UA was suggestive of urinary tract infection. Symptoms would suggest lower urinary tract pathology rather than ureteral stone. Cipro was prescribed due to penicillin allergy. Peridium was prescribed for the pain. See discharge instructions. Departure Impression Primary Impression: Urinary tract infection Qualified Codes: N39.0 - Urinary tract infection, site not specified; R31.9 - Hematuria, unspecified Disposition: 01 HOME, SELF-CARE Condition: Improved Departure-Patient Inst. Decision time for Depature: 08:14 Referrals: NO,LOCAL PHYSICIAN (PCP) Primary Care Physician LIANNA MAHAJAN APRN (Family) Primary Care Physician Patient Instructions: Urinary Tract Infection, Adult (DC) Add. Discharge Instructions: Complete your antibiotics as prescribed. Drink plenty of clear liquids and urinate frequently. For prevention of urinary tract infections, please wipe front to back when using the restroom. Urinate after intercourse. Drink plenty of clear liquids. Follow-up with your primary care provider or Dr. Betancur to review urine culture results. Results may be available as early as Thursday. Return to the emergency room if you have worsening symptoms including increasing pain, increasing bleeding, development of fever, etc. Pyridium may be used to reduce bladder and urethral pain. Please be advised this may turn your urine orangeish or reddish color. All discharge instructions reviewed with patient and/or family. Voiced understanding. Scripts Phenazopyridine HCl (Pyridium) 200 Mg Tablet 1 TAB PO TID PRN for pain, #10 TAB Prov: LUCAS EDGAR MD 03/30/19 Ciprofloxacin HCl (Ciprofloxacin HCl) 500 Mg Tablet 500 MG PO BID, #14 TAB Prov: LUCAS EDGAR MD 03/30/19 Copy Copies To 1: DADA GARNICA DO Copies To 2: KAMILLA BETANCUR MD, JOSHUA T MD Mar 30, 2019 08:17 POS
[2019-03-30 08:23] VITALS: BP 114/75
== END 2019-03-30 08:23 | disposition home or self-care (01) ==
LOC: EDUNIT# 07:16 → ER 07:17
DX: N39.0 Urinary tract infection, site not specified (principal); G43.909 Migraine, unspecified, not intractable, without status migrainosus; F32.9 Major depressive disorder, single episode, unspecified; Z87.442 Personal history of urinary calculi; Z88.0 Allergy status to penicillin; Z79.52 Long term (current) use of systemic steroids; Z79.51 Long term (current) use of inhaled steroids; Z90.710 Acquired absence of both cervix and uterus
CPT/HCPCS: 81000; 87077; 87088; 99282

== ENCOUNTER 2019-04-24 06:08 | Emergency (ER) | payer OTHER ==
[~2019-04-24] VITALS: Ht 160 cm; Wt 119.6 kg
[~2019-04-24 06:08] MED LIST changes: +CIPR500T4 PO; +PHEN-640 PO
--- NOTE | 2019-04-24 06:25 | ED Headache ---
General Stated Complaint: HEADACHE/RASH Source: patient, spouse Exam Limitations: no limitations History of Present Illness Date Seen by Provider: Apr 24, 2019 Time Seen by Provider: 06:09 Initial Comments Patient presents headache with throbbing migraine headache for the past 2 days and recent onset of a pruritic, red rash consistent with body mites that she's had in the past. She went to urgent care yesterday received Toradol shot which helped but did not totally make it go away. She has had difficulty sleeping because of the itching which has made her migraine headache worse. She has a history of migraines just like this one. She is not having significant nausea. She was given permethrin for her body lice/scabies. She's been using loratadine and Benadryl with minimal relief. She is some Benadryl topical ointment as well. She's had no fevers chills cough nausea vomiting diarrhea or shortness of breath. Allergies and Home Medications Allergies Coded Allergies: Penicillins (Verified Allergy, Unknown, FROM CHILDHOOD, 01/12/19) Home Medications Allopurinol 300 Mg Tablet, 300 MG PO DAILY, (Reported) Ciprofloxacin HCl 500 Mg Tablet, 500 MG PO BID Prescribed by: LUCAS POPE on 03/30/19 0816 Cyclobenzaprine HCl 10 Mg Tablet, 10 MG PO PRN PRN for SPASMS, (Reported) Estradiol 1 Mg Tablet, 1 MG PO DAILY, (Reported) Fluoxetine HCl 40 Mg Capsule, 40 MG PO DAILY, (Reported) Fluticasone Propionate 9.9 Ml [place].susp, 1 SPRAY NS DAILY, (Reported) 1 SPRAY EACH NARE DAILY Loratadine 10 Mg Tablet, 10 MG PO DAILY, (Reported) Phenazopyridine HCl 200 Mg Tablet, 1 TAB PO TID PRN for pain Prescribed by: LUCAS POPE on 03/30/19 0816 Potassium Citrate 15 Meq Tab, 15 MEQ PO BID, (Reported) Propranolol HCl 20 Mg Tablet, 20 MG PO TID, (Reported) Triamterene/Hydrochlorothiazid 1 Each Capsule, 1 EACH PO DAILY, (Reported) Zolpidem Tartrate 10 Mg Tablet, 10 MG PO HS, (Reported) Patient Home Medication List Home Medication List Reviewed: Yes Review of Systems Review of Systems Constitutional: No chills, No diaphoresis Eyes: Denies Blindness, Denies Blurred Vision Ears, Nose, Mouth, Throat: denies ear pain, denies ear discharge Respiratory: No cough, No short of breath Cardiovascular: No chest pain, No edema Gastrointestinal: No abdominal pain, No constipation, No diarrhea Genitourinary: No discharge, No dysuria Musculoskeletal: No back pain, No joint pain Skin: see HPI, pruritus, rash All Other Systems Reviewed Negative Unless Noted: Yes Past Sclmuqm-Dokeje-Picobu Hx Patient Social History Alcohol Use: Occasionally Uses Alcohol Beverage of Choice: Beer Recreational Drug Use: No Smoking Status: Never a Smoker 2nd Hand Smoke Exposure: No Recent Foreign Travel: No Contact w/Someone Who Travel: No Recent Hopitalizations: No Immunizations Up To Date Date of Influenza Vaccine: Feb 22, 2018 Seasonal Allergies Seasonal Allergies: Yes Past Medical History Surgeries: Yes (GASTRIC BYPASS, KIDNEY STONES-SEVERAL, BODY LIFT, BREAST AND ARM LIFT) Abdominal, Bladder Surgery, Section, Hysterectomy, Oophorectomy Respiratory: No Cardiac: No Neurological: Yes Headaches /Migraines Female Reproductive Disorders: Denies Sexually Transmitted Disease: No HIV/AIDS: No Genitourinary: Yes (CYSTOCELE) Kidney Stones Gastrointestinal: No Musculoskeletal: No Endocrine: No HEENT: Yes (GLASSES/CONTACTS) Loss of Vision: Denies Hearing Impairment: Denies Cancer: No Psychosocial: Yes Depression Integumentary: No Blood Disorders: No Adverse Reaction/Blood Tranf: No (N/A) Physical Exam Vital Signs Vital Signs - First Documented 04/24/19 06:11 Temp 36.2 Pulse 80 Resp 18 B/P (MAP) 138/81 (100) Pulse Ox 97 O2 Delivery Room Air Capillary Refill : Height, Weight, BMI Height: 5'4.00" Weight: 246lbs. 0.0oz. 111.017303lb; 44.00 BMI Method:Stated General Appearance: WD/WN, no apparent distress, other (smiling, laughing, interactive) HEENT: PERRL/EOMI, pharynx normal Neck: full range of motion, normal inspection Cardiovascular: normal peripheral pulses, regular rate, rhythm Respiratory: no respiratory distress, no accessory muscle use Extremities: normal range of motion, non-tender, normal capillary refill Psychiatric: alert, oriented x 3 Motor/Sensory: no motor deficit, no sensory deficit Skin: rash (erythematous macular, pruritic small 1 cm around slightly raised patches with mild excoriation on the upper extremities trunk and partially lower extremities as well.) Progress/Results/Core Measures Results/Orders My Orders Orders - DYLON PAVON Prochlorperazine Injection (Compazine In (04/24/19 06:30) Ketorolac Injection (Toradol Injection) (04/24/19 06:30) Acetaminophen Tablet (Tylenol Tablet) (04/24/19 06:30) Hydroxyzine Cap/Tab (Vistaril) (04/24/19 06:30) Vital Signs/I&O 04/24/19 06:11 Temp 36.2 Pulse 80 Resp 18 B/P (MAP) 138/81 (100) Pulse Ox 97 O2 Delivery Room Air Progress Progress Note : Time: 06:24 Progress Note She should continue to use the permethrin as prescribed. I recommend some Atarax for anti-itch and continue to use the loratadine. We'll also recommend calamine lotion applied directly for itching or topical steroid. For her migraine happy to provide IM Toradol, Compazine and dexamethasone. Departure Impression Primary Impression: Migraine Qualified Codes: G43.009 - Migraine without aura, not intractable, without status migrainosus Additional Impression: Rash Disposition: 01 HOME, SELF-CARE Condition: Stable Departure-Patient Inst. Decision time for Depature: 06:30 Referrals: NO,LOCAL PHYSICIAN (PCP) Primary Care Physician ARUNA MAHAJAN APRN (Family) Primary Care Physician Patient Instructions: Migraine Headache (DC), Skin Rash Add. Discharge Instructions: Start with calamine lotion for the rash to help with the itching. Continue to use loratadine or cetirizine 10 mg daily. You can use the Atarax 1 tablet every 6 hours as needed for breakthrough itching. You may trial topical steroids if the itching is too intense. Used the permethrin as prescribed. For your migraine headache use Tylenol and ibuprofen and get sleep. Drink plenty of fluids today. Avoid use of opiates as this may cause more rebound migraine headaches. Talk your primary care doctor about all up with a neurologist for management of your migraines. Scripts Hydroxyzine HCl (Hydroxyzine HCl) 25 Mg Tablet 25 MG PO Q6H PRN for ITCHING, #30 TAB 0 Refills Prov: DYLON PAVON 04/24/19 DYLON PAVON Apr 24, 2019 06:25 POS
[2019-04-24] MEDS ORDERED: KETOROLAC 60 MG/2 ML VIAL IM ONE (06:30)
[2019-04-24] MEDS ORDERED: PROCHLORPERAZINE 10 MG/2ML INJ (COMPAZINE) IM ONE (06:30)
[2019-04-24] MEDS ORDERED: hydrOXYzine (VISTARIL/ATARAX) 25 MG capsule/tablet PO ONE (06:30)
[2019-04-24] MEDS ORDERED: DEXAMETHASONE 10 MG/ML (DECADRON) 1 ML VIAL IM ONE (06:30)
[2019-04-24] MEDS ORDERED: ACETAMINOPHEN 500 MG TAB (TYLENOL) PO ONE (06:30)
[2019-04-24] MEDS ORDERED: HYDR-700 PO (06:32)
[2019-04-24 06:37] VITALS: BP 138/81
[2019-05-06] MEDS ORDERED: PANT40TA2 PO (14:18)
== END 2019-04-24 06:37 | disposition home or self-care (01) ==
LOC: EDUNIT# 06:08 → ER FS 06:10
DX: G43.909 Migraine, unspecified, not intractable, without status migrainosus (principal); R21 Rash and other nonspecific skin eruption; F32.9 Major depressive disorder, single episode, unspecified; Z88.0 Allergy status to penicillin; Z79.51 Long term (current) use of inhaled steroids; Z79.52 Long term (current) use of systemic steroids; Z90.710 Acquired absence of both cervix and uterus; Z87.442 Personal history of urinary calculi
CPT/HCPCS: 96372; 99284

== ENCOUNTER 2019-05-02 05:49 | Outpatient (CLI) | payer OTHER ==
[~2019-05-02] VITALS: Ht 160 cm; Wt 111.8 kg
[~2019-05-02 05:49] MED LIST changes: +HYDR-700 PO
[2019-05-02] MEDS ORDERED: FERR-84 PO (14:01)
== END 2019-05-02 14:02 ==
LOC: PREOP 05:49
PROVIDERS: ATTEND Surgery
DX: Z01.818 Encounter for other preprocedural examination (principal)

== ENCOUNTER → 2021-08-16 | Outpatient (CLI) | payer OTHER ==
[~2021-08-16] MED LIST changes: -CIPR500T4 PO; +CIPR500T5 PO; +CYCL10TA25 PO; -CYCL10TA9 PO; +FERR-84 PO; +PANT40TA2 PO
--- NOTE | 2021-08-16 13:14 | Diagnostic Imaging Report ---
PROCEDURE: CT abdomen and pelvis without contrast. TECHNIQUE: Multiple contiguous axial images were obtained through the abdomen and pelvis without the use of intravenous contrast. Auto Exposure Controls were utilized during the CT exam to meet ALARA standards for radiation dose reduction. INDICATION: Kidney stones. COMPARISON: Correlation is made with prior CT from 12/31/2015. FINDINGS: Lung bases are clear. Postop changes from gastric bypass surgery are noted. The liver shows diffuse low density consistent with hepatic steatosis. No discrete liver mass is seen. Gallbladder is unremarkable. There is no biliary ductal dilatation. Pancreas and spleen are unremarkable. No adrenal mass is detected. Kidneys contain numerous cortical lesions, both low and increased in attenuation, suggestive of cysts. Higher-attenuation lesions are likely hemorrhagic cysts. The kidneys contain nonobstructing calculi. The largest is in the lower pole of the right kidney, measuring 5 mm. No definite ureteral calculi or hydronephrosis is seen. The bladder is unremarkable. The aorta is nonaneurysmal. Small and large bowel loops are normal in caliber. There is diverticulosis of the sigmoid and descending colon but no evidence of acute diverticulitis. There is no free fluid or fluid collection. Uterus is surgically absent. IMPRESSION: 1. Bilateral nonobstructing nephrolithiasis. No ureteral calculi or hydronephrosis is seen. 2. Bilateral renal cysts. 3. Uncomplicated diverticulosis. Dictated by: Dictated on workstation # [id number]
== END ==
LOC: RAD 11:45
PROVIDERS: ATTEND Urology
DX: N20.0 Calculus of kidney (principal); N28.1 Cyst of kidney, acquired; K57.30 Diverticulosis of large intestine without perforation or abscess without bleeding
CPT/HCPCS: 74176

== ENCOUNTER 2022-03-09 15:52 | Emergency (ER) | payer OTHER ==
[~2022-03-09] VITALS: Ht 162.6 cm; Wt 125.0 kg
[~2022-03-09 15:52] MED LIST changes: -TRIA1CAP4 PO; +TRIA1CAP84 PO
[2022-03-09 16:44] LABS: BASOPHILS % (AUTO) 0 % (0-10); EOSINOPHILS # (AUTO) 0.2 10^3/uL (0.0-0.3); EOSINOPHILS % (AUTO) 3 % (0-10); HEMATOCRIT 40 % (35-52); HEMOGLOBIN 12.8 g/dL (11.5-16.0); LYMPHOCYTES # (AUTO) 1.3 10^3/uL (1.0-4.0); LYMPHOCYTES % (AUTO) 25 % (12-44); MEAN CORPUSCULAR HEMOGLOBIN 25 pg (25-34); MEAN CORPUSCULAR HGB CONC 32 g/dL (32-36); MEAN CORPUSCULAR VOLUME 77 fL (80-99); MONOCYTES # (AUTO) 0.4 10^3/uL (0.0-1.0); MONOCYTES % (AUTO) 8 % (0-12); NEUTROPHILS # (AUTO) 3.3 10^3/uL (1.8-7.8); NEUTROPHILS % (AUTO) 63 % (42-75); PLATELET COUNT 306 10^3/uL (130-400); WHITE BLOOD COUNT 5.2 10^3/uL (4.3-11.0)
[2022-03-09] MEDS ORDERED: KETOROLAC 30 MG/ML VIAL IVP ONE (16:45)
[2022-03-09] MEDS ORDERED: NS IV 1000 ML 1,000 ML IV SCH (16:45)
[2022-03-09 16:46] LABS: ALBUMIN 3.8 GM/DL (3.2-4.5); POTASSIUM 3.4 MMOL/L (3.6-5.0)
[2022-03-09 16:48] LABS: CALCIUM 8.7 MG/DL (8.5-10.1)
[2022-03-09 16:51] LABS: BILIRUBIN,TOTAL 0.3 MG/DL (0.1-1.0)
[2022-03-09 16:52] LABS: CREATININE SERUM 0.76 MG/DL (0.60-1.30)
[2022-03-09 16:54] LABS: BILIRUBIN,URINE NEGATIVE (NEGATIVE); CLARITY,URINE CLEAR; COLOR,URINE YELLOW; GLUCOSE, URINE (UA) NEGATIVE (NEGATIVE); KETONES,URINE NEGATIVE (NEGATIVE); LEUKOCYTE ESTERASE ,URINE NEGATIVE (NEGATIVE); NITRITE,URINE NEGATIVE (NEGATIVE); PROTEIN,URINE NEGATIVE (NEGATIVE)
[2022-03-09 17:01] LABS: BACTERIA,URINE TRACE /HPF; SQUAMOUS EPITHELIAL CELL,UR 0-2 /HPF
--- NOTE | 2022-03-09 17:14 | ED Abdominal Pain ---
General Chief Complaint: Abdominal/GI Problems Stated Complaint: POSS KIDNEY STONES Nursing Triage Note: pt states she thinks she is having a "kidney stone attack"/ LUQ abd pain radiating to side/back states she sees Dr Hernandes every 6 months for cysts and stones in her kidneys but has not had pain or passed any stones in a long time. states she always has some blood in her urine. states she just finished abx for possible bladder infection History of Present Illness Date Seen by Provider: Mar 09, 2022 Time Seen by Provider: 16:05 Initial Comments Patient is a 51 yo F who presents to the ED with L flank pain that began earlier today. She states she has had some mild pain in the area for the last 2 weeks. She has also had some hematuria but states this is not abnormal for her. She follow-up with urology every 6 months for follow-up regarding kidney cysts and nephrolithiasis. She states her last ureterolithiasis was ~ 1 decade ago. She states she has been nauseous without emesis. No fever. No urinary frequency. She has been taking Tylenol and Motrin for the pain. Allergies and Home Medications Allergies Coded Allergies: Penicillins (Verified Allergy, Unknown, FROM CHILDHOOD, 01/12/19) Patient Home Medication List Home Medication List Reviewed: Yes Allopurinol (Allopurinol) 300 Mg Tablet, 300 MG PO DAILY, (Reported) Entered as Reported by: ABILIO SAMSON on 01/12/19 1119 Cyclobenzaprine HCl (Cyclobenzaprine HCl) 10 Mg Tablet, 10 MG PO PRN PRN for SPASMS, (Reported) Entered as Reported by: AIBLIO SAMSON on 01/12/19 1119 Ferrous Sulfate (Iron) 325 Mg Tablet, 325 MG PO DAILY, (Reported) Entered as Reported by: TERESITA MARIN on 05/02/19 1401 Fluoxetine HCl (Prozac) 40 Mg Capsule, 40 MG PO DAILY, (Reported) Entered as Reported by: ABILIO SAMSON on 01/12/19 1119 Fluticasone Propionate (Flonase Allergy Relief) 9.9 Ml [place].susp, 1 SPRAY NS DAILY, (Reported) Entered as Reported by: ABILIO SAMSON on 01/12/19 111 Ketorolac Tromethamine (Ketorolac Tromethamine) 10 Mg Tablet, 10 MG PO Q6H PRN for PAIN-SEE DOSE INSTRUCTIONS Prescribed by: Al Astorga on 03/09/22 191 Loratadine (Loratadine) 10 Mg Tablet, 10 MG PO DAILY, (Reported) Entered as Reported by: ABILIO SAMSON on 01/12/19 111 Pantoprazole Sodium (Protonix) 40 Mg Tablet.dr, 40 MG PO DAILY Prescribed by: SANTOSH BARBOSA on 05/06/19 1418 Potassium Citrate (Potassium Citrate ER) 15 Meq Tab, 15 MEQ PO BID, (Reported) Entered as Reported by: ABILIO SAMSON on 01/12/19 111 Propranolol HCl (Propranolol HCl) 20 Mg Tablet, 20 MG PO TID, (Reported) Entered as Reported by: ABILIO SAMSON on 01/12/19 111 Triamterene/Hydrochlorothiazid (Triamterene-Hctz 37.5-25 mg Cp) 1 Each Capsule, 1 EACH PO DAILY, (Reported) Entered as Reported by: ABILIO SAMSON on 01/12/19 111 Zolpidem Tartrate (Ambien) 10 Mg Tablet, 10 MG PO HS, (Reported) Entered as Reported by: ABILIO SAMSON on 01/12/19 111 Review of Systems Review of Systems Constitutional: no symptoms reported EENTM: No Symptoms Reported Respiratory: No Symptoms Reported Cardiovascular: No Symptoms Reported Gastrointestinal: See HPI Genitourinary: See HPI Musculoskeletal: no symptoms reported Skin: no symptoms reported Psychiatric/Neurological: No Symptoms Reported Endocrine: No Symptoms Reported Hematologic/Lymphatic: No Symptoms Reported Past Iaaaito-[id number]-[id number] Hx Patient Social History Tobacco Use?: No Substance use?: No Alcohol Use?: Yes Pt feels they are or have been: No Seasonal Allergies Seasonal Allergies: Yes Past Medical History Surgeries: Yes (GASTRIC BYPASS, KIDNEY STONES-SEVERAL, BODY LIFT, BREAST AND ARM LIFT) Abdominal, Bladder Surgery, Section, Hysterectomy, Oophorectomy Respiratory: No Cardiac: Yes Hypertension Neurological: Yes Headaches /Migraines Female Reproductive Disorders: Denies Sexually Transmitted Disease: No HIV/AIDS: No Genitourinary: Yes Kidney Stones Gastrointestinal: Yes Gastroesophageal Reflux Musculoskeletal: No Endocrine: No HEENT: Yes (GLASSES/CONTACTS) Loss of Vision: Denies Hearing Impairment: Denies Cancer: No Psychosocial: Yes Depression Integumentary: No Blood Disorders: No Adverse Reaction/Blood Tranf: No (N/A) Physical Exam Vital Signs Vital Signs - First Documented 03/09/22 16:00 Temp 36.8 Pulse 87 Resp 18 B/P (MAP) 136/73 (94) Pulse Ox 96 O2 Delivery Room Air Capillary Refill : Less Than 3 Seconds Height/Weight/BMI Height: 5'4.00" Weight: 246lbs. 0.0oz. 111.118780nm; 47.00 BMI Method:Stated General Appearance: WD/WN, no apparent distress HEENT: PERRL/EOMI, normal ENT inspection Neck: non-tender, full range of motion Respiratory: chest non-tender, lungs clear, normal breath sounds, no respiratory distress, no accessory muscle use Cardiovascular: regular rate, rhythm Gastrointestinal: normal bowel sounds, soft, no organomegaly, no pulsatile mass, tenderness Extremities: normal range of motion, non-tender Back: normal inspection Neurologic/Psychiatric: diet supervisor II-XII nml as tested, no motor/sensory deficits, alert, normal mood/affect, oriented x 3 Skin: normal color, warm/dry Progress/Results/Core Measures Results/Orders Lab Results Laboratory Tests Test 03/09/22 16:05 03/09/22 16:48 Range/Units White Blood Count 5.2 4.3-11.0 10^3/uL Red Blood Count 5.21 H 3.80-5.11 10^6/uL Hemoglobin 12.8 11.5-16.0 g/dL Hematocrit 40 35-52 % Mean Corpuscular Volume 77 L 80-99 fL Mean Corpuscular Hemoglobin 25 25-34 pg Mean Corpuscular Hemoglobin Concent 32 32-36 g/dL Red Cell Distribution Width 15.8 H 10.0-14.5 % Platelet Count 306 130-400 10^3/uL Mean Platelet Volume 10.0 9.0-12.2 fL Immature Granulocyte % (Auto) 1 % Neutrophils (%) (Auto) 63 42-75 % Lymphocytes (%) (Auto) 25 12-44 % Monocytes (%) (Auto) 8 0-12 % Eosinophils (%) (Auto) 3 0-10 % Basophils (%) (Auto) 0 0-10 % Neutrophils # (Auto) 3.3 1.8-7.8 10^3/uL Lymphocytes # (Auto) 1.3 1.0-4.0 10^3/uL Monocytes # (Auto) 0.4 0.0-1.0 10^3/uL Eosinophils # (Auto) 0.2 0.0-0.3 10^3/uL Basophils # (Auto) 0.0 0.0-0.1 10^3/uL Immature Granulocyte # (Auto) 0.0 0.0-0.1 10^3/uL Sodium Level 137 135-145 MMOL/L Potassium Level 3.4 L 3.6-5.0 MMOL/L Chloride Level 104 98-107 MMOL/L Carbon Dioxide Level 22 21-32 MMOL/L Anion Gap 11 5-14 MMOL/L Blood Urea Nitrogen 13 7-18 MG/DL Creatinine 0.76 0.60-1.30 MG/DL Estimat Glomerular Filtration Rate 94 BUN/Creatinine Ratio 17 Glucose Level 108 H 70-105 MG/DL Calcium Level 8.7 8.5-10.1 MG/DL Corrected Calcium 8.9 8.5-10.1 MG/DL Total Bilirubin 0.3 0.1-1.0 MG/DL Aspartate Amino Transf (AST/SGOT) 41 H 5-34 U/L Alanine Aminotransferase (ALT/SGPT) 44 0-55 U/L Alkaline Phosphatase 58 40-136 U/L Total Protein 7.0 6.4-8.2 GM/DL Albumin 3.8 3.2-4.5 GM/DL Urine Color YELLOW Urine Clarity CLEAR Urine pH 6.0 5-9 Urine Specific [place] 1.010 L 1.016-1.022 Urine Protein NEGATIVE NEGATIVE Urine Glucose (UA) NEGATIVE NEGATIVE Urine Ketones NEGATIVE NEGATIVE Urine Nitrite NEGATIVE NEGATIVE Urine Bilirubin NEGATIVE NEGATIVE Urine Urobilinogen 0.2 < = 1.0 MG/DL Urine Leukocyte Esterase NEGATIVE NEGATIVE Urine RBC (Auto) 1+ H NEGATIVE Urine RBC 2-5 H /HPF Urine WBC NONE /HPF Urine Squamous Epithelial Cells 0-2 /HPF Urine Crystals NONE /LPF Urine Bacteria TRACE /HPF Urine Casts NONE /LPF Urine Mucus NEGATIVE /LPF Urine Culture Indicated NO My Orders Orders - AL ASTORGA METALIZING MACHINE OPERATOR AUTOMATIC Cbc With Automated Diff (03/09/22 16:33) Comprehensive Metabolic Panel (03/09/22 16:33) Ua Culture If Indicated (03/09/22 16:33) Iv/Invasive Line Insertion .IV INSERT (03/09/22 16:33) Ketorolac Injection (Toradol Injection) (03/09/22 16:45) Ns Iv 1000 Ml (Sodium Chloride 0.9%) (03/09/22 16:45) Ct Abdomen/Pelvis Wo (03/09/22 17:17) Promethazine Injection (Phenergan Injec (03/09/22 19:00) Hydrocodone/Apap 5/325 Tablet (Lortab 5 (03/09/22 19:00) Ns (Ivpb) (Sodium Chloride 0.9% Ivpb Bag (03/09/22 19:15) Ns (Ivpb) (Sodium Chloride 0.9% Ivpb Bag (03/09/22 19:05) Medications Given in ED Current Medications Medications Dose Ordered Sig/Michelle Route Start Time Stop Time Status Last Admin Dose Admin Acetaminophen/ Hydrocodone Bitart 1 ea ONCE ONCE PO 03/09/22 19:00 03/09/22 19:01 DC 03/09/22 19:08 1 EA Ketorolac Tromethamine 30 mg ONCE ONCE IVP 03/09/22 16:45 03/09/22 16:46 DC 03/09/22 16:52 30 MG Promethazine HCl 25 mg ONCE ONCE IVP 03/09/22 19:00 03/09/22 19:01 DC 03/09/22 19:08 25 MG Sodium Chloride 50 ml ONCE ONCE IV 03/09/22 19:15 03/09/22 19:16 DC 03/09/22 19:09 50 ML Vital Signs/I&O 03/09/22 03/09/22 16:00 19:40 Temp 36.8 36.8 Pulse 87 87 Resp 18 18 B/P (MAP) 136/73 (94) 136/73 Pulse Ox 96 96 O2 Delivery Room Air Room Air Blood Pressure Mean: 94 Progress Progress Note : Progress Note Patient is nontoxic and well hydrated on exam. Abdominal exam is reassuring. Pt does not have any abd or flank TTP. No CVA TTP. Vital signs are reassuring. Patient was given analgesia and antiemetics. Laboratory evaluation largely unremarkable. Urinalysis with small hematuria. CT of the abd/pelvis acutely negative. Will d/c home with recs for supportive care and follow-up with PCP for persistent symptoms. She states she is planning on calling her urologist tomorrow. Return precautions for urgent symptomology discussed. Patient verbalized understanding. Departure Impression Primary Impression: Left flank pain Disposition: HOME, SELF-CARE Condition: Improved Departure-Patient Inst. Decision time for Depature: 19:15 Referrals: NOEMY CURRY APRN (PCP/Family) Primary Care Physician Patient Instructions: Flank Pain ED Scripts Ketorolac Tromethamine (Ketorolac Tromethamine) 10 Mg Tablet 10 MG PO Q6H PRN for PAIN-SEE DOSE INSTRUCTIONS for 5 Days, #20 TAB 0 Refills Prov: AL ASTORGA APRN 03/09/22 AL ASTORGA APRN Mar 09, 2022 17:13
--- NOTE | 2022-03-09 17:46 | Diagnostic Imaging Report ---
PROCEDURE: CT abdomen and pelvis without contrast. TECHNIQUE: Multiple contiguous axial images were obtained through the abdomen and pelvis without the use of intravenous contrast. Auto Exposure Controls were utilized during the CT exam to meet ALARA standards for radiation dose reduction. INDICATION: Left flank pain. History of kidney stones. COMPARISON: Prior CT study from August 16, 2021. FINDINGS: The lung bases demonstrate no finding of pneumonia or edema. There is no pleural or pericardial effusion. The liver demonstrates hepatic steatosis with some sparing along the gallbladder fossa. The gallbladder is slightly distended without radiodense stone or biliary dilatation. The pancreas is atrophic without focal abnormality. The spleen is normal in size. There are innumerable tiny cysts arising from the kidneys appearing similar to the previous exam. There are nonobstructing calculi present within the lower calyces of each kidney which are unchanged in position from the prior exam. There is also a punctate stone within the upper calyces of the left kidney. There is no hydronephrosis or stone evident within the ureters. There are operative changes of gastric bypass. There is no evidence of bowel obstruction. The appendix is normal. There is advanced diverticulosis without evidence of current diverticulitis. There is no free air, free fluid or abscess. The bladder is nondistended. The patient is status post prior hysterectomy. There is no pathologic adenopathy. The aorta is normal in caliber. There is no acute or suspicious osseous abnormality. There are multilevel endplate changes throughout the spine. IMPRESSION: 1. Numerous bilateral renal cysts are unchanged from prior examination. 2. Bilateral nonobstructing renal calculi also stable from previous study. There is no stone within the collecting system or hydronephrosis. 3. Prior gastric bypass without bowel obstruction. 4. Normal appendix. Uncomplicated diverticulosis. 5. Previous hysterectomy. Dictated by: Dictated on workstation # [id number]
[2022-03-09] MEDS ORDERED: PROMETHAZINE INJ 25 MG/ML (PHENERGAN) AMP IVP ONE (19:00)
[2022-03-09] MEDS ORDERED: HYDROcodone/APAP 5 MG/325 MG (LORTAB) TAB PO ONE (19:00)
[2022-03-09] MEDS ORDERED: NS (IVPB) 50 ML ONE (19:05)
[2022-03-09] MEDS ORDERED: NS 50 ML (IVPB) BAG IV ONE (19:15)
[2022-03-09] MEDS ORDERED: KETO10TA PO (19:17)
[2022-03-09 19:40] VITALS: BP 136/73
== END 2022-03-09 19:41 | disposition home or self-care (01) ==
LOC: ER 15:52
DX: R10.9 Unspecified abdominal pain (principal); R11.0 Nausea; R31.9 Hematuria, unspecified; Z87.442 Personal history of urinary calculi; Z98.84 Bariatric surgery status; Z98.890 Other specified postprocedural states
CPT/HCPCS: 36415; 74176; 80053; 81000; 85025

== ENCOUNTER → 2022-06-24 | Outpatient (CLI) | payer OTHER ==
[~2022-06-24] MED LIST changes: +KETO10TA PO
--- NOTE | 2022-06-24 09:05 | Diagnostic Imaging Report ---
INDICATION: Screening for osteoporosis, postmenopausal state COMPARISON: None available FINDINGS: AP Spine L1-L4: [BMD (g/cm2): 0.956] [T-Score: -2.0] [Z-Score: -2.5] [BMD Previous: n/a] [BMD % Change: n/a] LT Hip Neck: [BMD (g/cm2): 0.871] [T-Score: -1.2] [Z-Score: -1.0] LT Hip Total: [BMD (g/cm2):0.921] [T-Score:-.07] [Z-Score: -0.9] [BMD Previous: n/a] [BMD % Change: n/a] RT Hip Neck: [BMD (g/cm2):0.827] [T-Score:-1.5] [Z-Score:-1.3] RT Hip Total: [BMD (g/cm2):0.859] [T-score:-1.2] [Z-Score:-1.4] [BMD Previous:n/a] [BMD % Change:n/a] *Indicates significant change from prior examination based on 95% confidence level. World Health Organization criteria for BMD interpretation classify patients as Normal (T-score at or above -1.0), Osteopenic (T-score between -1.0 and -2.5) or Osteoporotic (T-score at or below -2.5). LIMITATIONS AND MODIFICATION: None. FRACTURE RISK (FRAX SCORE): The ten year probability of (%): Major Osteoporotic Fracture: [5.0] Hip Fracture: [0.4] IMPRESSION: 1. Osteopenia (Low bone mass). 2. Baseline examination. 3. See below National Osteoporosis Foundation guidelines on when to potentially initiate pharmacologic therapy. Based on the National Osteoporosis Foundation Guidelines, pharmacologic treatment should be initiated in any of the following, unless clinical conditions suggest otherwise: * Any patient with prior fragility fracture of the hip or vertebrae. A spine fracture indicates 5X risk for subsequent spine fracture and 2X risk for subsequent hip fracture. * Osteoporosis (T-score <-2.5). * Postmenopausal women and men age 50 and older with low bone mass/osteopenia (T-score between -1.0 and -2.5) by DXA and 10-year major osteoporotic fracture greater than 20% or a 10-year probability of hip fracture greater than 3%. These fracture risks are supplied above in the FRAX score, if applicable. * Clinician judgement and/or patient preferences may indicate treatment for people with 10-year fracture probabilities above or below these levels. Dictated by: Dictated on workstation # [id number]
--- NOTE | 2022-06-26 13:06 | Diagnostic Imaging Report ---
Indication: Routine screening Comparison is made with prior mammograms from 01/25/2020 and 03/24/2019. 2-D and 3-D bilateral screening mammography was performed with CAD. Scattered fibroglandular densities are identified bilaterally. Nodular densities in both breasts appear stable. No spiculated mass or malignant-appearing microcalcifications are seen. The axillae are unremarkable. IMPRESSION: BI-RADS Category 2 No mammographic features suspicious for malignancy are identified. ACR BI-RADS Category 2: Benign findings. Result letter will be mailed to the patient. Note: At least 10% of breast cancer is not imaged by mammography. Dictated by: Dictated on workstation # [id number]
== END ==
LOC: RAD 08:01
PROVIDERS: ATTEND Nurse Practitioner Family
DX: M85.80 Other specified disorders of bone density and structure, unspecified site (principal)
CPT/HCPCS: 77063; 77067; 77080

== ENCOUNTER 2022-07-11 00:39 | Emergency (ER) | payer OTHER ==
[~2022-07-11] VITALS: Ht 160 cm; Wt 130.2 kg
[2022-07-11] MEDS ORDERED: AZIT250T12 (00:54)
[2022-07-11] MEDS ORDERED: ALPR1TAB7 (00:54)
[2022-07-11] MEDS ORDERED: NIRM1TAB (00:54)
[2022-07-11] MEDS ORDERED: BENZ-36 (00:54)
[2022-07-11] MEDS ORDERED: FLUO40CA (00:54)
[2022-07-11] MEDS ORDERED: CETI-511 (00:54)
[2022-07-11] MEDS ORDERED: ZOLPIDEM (00:54)
[2022-07-11] MEDS ORDERED: ELET40TA8 (00:54)
[2022-07-11] MEDS ORDERED: ACETAMINOPHEN 500 MG TAB (TYLENOL) PO ONE (01:00)
[2022-07-11] MEDS ORDERED: KETOROLAC 30 MG/ML VIAL IM ONE (01:00)
[2022-07-11] MEDS ORDERED: ORPHENADRINE 60 MG/2 ML (NORFLEX) AMP (ED ONLY) IM ONE (01:00)
--- NOTE | 2022-07-11 01:07 | ED Cough/URI ---
General Chief Complaint: Cough/Cold/Flu Symptoms Stated Complaint: TEMP 104,SORE THROAT,COUGH Nursing Triage Note: fever, headache, recently covid positive Source: patient Exam Limitations: no limitations History of Present Illness Date Seen by Provider: Jul 11, 2022 Time Seen by Provider: 00:51 Initial Comments Patient is a 51-year-old female who presents to the emergency department chief complaint fever, mild body aches, frontal headache, cough that is occasionally productive of sputum. Patient states that she started getting symptoms of COVID on June 28, she waited to test until July 04. She states she was prescribed Paxlovid and a "Z-Marvin" that she finished yesterday or the day before. Patient states yesterday she felt good but this morning on she woke up with the above-stated symptoms. She last took ibuprofen 7 or 8 hours ago. She last took Tylenol "4 or 5 hours ago". She took Mucinex with Tylenol. She feels mildly short of breath. No leg swelling or calf cramping. No history of DVT. History of migraines, depression/anxiety. No hypertension diabetes. She is not nauseous, no abdominal pain. No burning with urination or diarrhea. No earache, sore throat. She occasionally uses an inhaler secondary to having COVID prevaccine. She took her Eletriptan KNOCKDOWN MAN without relief of VILLARREAL. All other review of systems reviewed and negative except as stated Timing/Duration: yesterday Severity/Quality: severe, productive cough Prior Episodes/Possible Cause: illness exposure Associated Symptoms: cough, fever/chills, headache, muscle aches, nasal congestion Allergies and Home Medications Allergies Coded Allergies: Penicillins (Verified Allergy, Unknown, FROM CHILDHOOD, 01/12/19) Patient Home Medication List Home Medication List Reviewed: Yes Alprazolam (Alprazolam) 1 Mg Tablet, (Reported) Entered as Reported by: JANICE DELGADO on 07/11/2253 Last Action: New Order Azithromycin (Azithromycin) 250 Mg Tablet, (Reported) Entered as Reported by: JANICE DELGADO on 07/11/2253 Last Action: New Order Benzonatate (Benzonatate) 100 Mg Capsule, (Reported) Entered as Reported by: JANICE DELGADO on 07/11/2253 Last Action: New Order Cetirizine HCl/Pseudoephedrine (Cetirizine-Pse ER 5-120 mg Tab) 5 Mg-120 Mg Tab.er.12h, (Reported) Entered as Reported by: JANICE DELGADO on 07/11/2253 Last Action: New Order Eletriptan HBr (Eletriptan HBr) 40 Mg Tablet, (Reported) Entered as Reported by: JANICE DELGADO on 07/11/2253 Last Action: New Order Fluoxetine HCl (Fluoxetine HCl) 40 Mg Capsule, (Reported) Entered as Reported by: JANICE DELGADO on 07/11/2253 Last Action: New Order Nirmatrelvir/Ritonavir (Paxlovid 300-100 mg Pack (Eua)) 300 Mg (150 Mg X 2)-100 Mg Tab.ds.pk, (Reported) Entered as Reported by: JANICE DELGADO on 07/11/2253 Last Action: New Order Oseltamivir Phosphate (Tamiflu) 75 Mg Cap, 75 MG PO BID Prescribed by: JESUS BRITO on 07/11/22145 [Zolpidem] , (Reported) Entered as Reported by: JANICE DELGADO on 07/11/2253 Last Action: New Order Discontinued Medications Allopurinol (Allopurinol) 300 Mg Tablet, 300 MG PO DAILY, (Reported) Discontinued Reason: No Longer Taking Entered as Reported by: ABILIO SAMSON on 01/12/191118 Last Action: Discontinued Cyclobenzaprine HCl (Cyclobenzaprine HCl) 10 Mg Tablet, 10 MG PO PRN PRN for SPASMS, (Reported) Discontinued Reason: No Longer Taking Entered as Reported by: ABILIO SAMSON on 01/12/191118 Last Action: Discontinued Ferrous Sulfate (Iron) 325 Mg Tablet, 325 MG PO DAILY, (Reported) Discontinued Reason: No Longer Taking Entered as Reported by: TERESITA MARIN on 05/02/19 1401 Last Action: Discontinued Fluoxetine HCl (Prozac) 40 Mg Capsule, 40 MG PO DAILY, (Reported) Discontinued Reason: No Longer Taking Entered as Reported by: ABILIO SAMSON on 01/12/191118 Last Action: Discontinued Fluticasone Propionate (Flonase Allergy Relief) 9.9 Ml [place].susp, 1 SPRAY NS DAILY, (Reported) Discontinued Reason: No Longer Taking Entered as Reported by: ABILIO SAMSON on 01/12/191118 Last Action: Discontinued Ketorolac Tromethamine (Ketorolac Tromethamine) 10 Mg Tablet, 10 MG PO Q6H PRN for PAIN-SEE DOSE INSTRUCTIONS Discontinued Reason: No Longer Taking Prescribed by: Al Astorga on 03/09/221916 Last Action: Discontinued Loratadine (Loratadine) 10 Mg Tablet, 10 MG PO DAILY, (Reported) Discontinued Reason: No Longer Taking Entered as Reported by: ABILIO SAMSON on 01/12/191118 Last Action: Discontinued Pantoprazole Sodium (Protonix) 40 Mg Tablet.dr, 40 MG PO DAILY Discontinued Reason: No Longer Taking Prescribed by: SANTOSH BARBOSA on 05/06/19 141 Last Action: Discontinued Potassium Citrate (Potassium Citrate ER) 15 Meq Tab, 15 MEQ PO BID, (Reported) Discontinued Reason: No Longer Taking Entered as Reported by: ABILIO SAMSON on 01/12/191118 Last Action: Discontinued Propranolol HCl (Propranolol HCl) 20 Mg Tablet, 20 MG PO TID, (Reported) Discontinued Reason: No Longer Taking Entered as Reported by: ABILIO SAMSON on 01/12/191118 Last Action: Discontinued Triamterene/Hydrochlorothiazid (Triamterene-Hctz 37.5-25 mg Cp) 1 Each Capsule, 1 EACH PO DAILY, (Reported) Discontinued Reason: No Longer Taking Entered as Reported by: ABILIO SAMSON on 01/12/191118 Last Action: Discontinued Zolpidem Tartrate (Ambien) 10 Mg Tablet, 10 MG PO HS, (Reported) Discontinued Reason: No Longer Taking Entered as Reported by: ABILIO SAMSON on 01/12/191118 Last Action: Discontinued Review of Systems Review of Systems Constitutional: see HPI, fever, malaise EENTM: throat pain (mild with cough) Respiratory: cough, phlegm (occasional) Cardiovascular: no symptoms reported Gastrointestinal: no symptoms reported Genitourinary: no symptoms reported : No Musculoskeletal: other (body aches) Skin: no symptoms reported Psychiatric/Neurological: Headache All Other Systems Reviewed Negative Unless Noted: Yes Past Qnovxwk-Ujsgao-Zyzhor Hx Patient Social History Tobacco Use?: No Substance use?: No Alcohol Use?: Yes Alcohol Frequency: Once in a while Pt feels they are or have been: No Immunizations Up To Date First/Initial COVID19 Vaccinat: x3 Seasonal Allergies Seasonal Allergies: Yes Past Medical History Surgery/Hospitalization HX: , gastric bypass, hysterectomy, anxiety, htn, gout Surgeries: Yes (GASTRIC BYPASS, KIDNEY STONES-SEVERAL, BODY LIFT, BREAST AND ARM LIFT) Abdominal, Bladder Surgery, Section, Hysterectomy, Oophorectomy Respiratory: No Cardiac: Yes Hypertension Neurological: Yes Headaches /Migraines Female Reproductive Disorders: Denies Sexually Transmitted Disease: No HIV/AIDS: No Genitourinary: Yes Kidney Stones Gastrointestinal: Yes Gastroesophageal Reflux Musculoskeletal: No Endocrine: No HEENT: Yes (GLASSES/CONTACTS) Loss of Vision: Denies Hearing Impairment: Denies Cancer: No Psychosocial: Yes Depression Integumentary: No Blood Disorders: No Adverse Reaction/Blood Tranf: No (N/A) Physical Exam Vital Signs - First Documented 07/11/22 00:45 Temp 38.7 Pulse 126 Resp 18 B/P (MAP) 134/89 (104) Pulse Ox 96 O2 Delivery Room Air Capillary Refill : Less Than 3 Seconds Height: 5'4.00" Weight: 246lbs. 0.0oz. 111.314350cm; 50.00 BMI Method:Stated General Appearance: WD/WN, mild distress Eyes: Bilateral Eye Normal Inspection, Bilateral Eye PERRL, Bilateral Eye EOMI HEENT: PERRL/EOMI, TMs normal, pharynx normal Neck: full range of motion, supple Respiratory: lungs clear, normal breath sounds, no respiratory distress, no accessory muscle use, other (slightly tachypneic) Cardiovascular: regular rate, rhythm (Tachy 124), tachycardia Extremities: normal range of motion, non-tender, normal inspection, no pedal edema, no calf tenderness, normal capillary refill Neurologic/Psychiatric: alert, normal mood/affect, oriented x 3 Skin: normal color, warm/dry Progress/Results/Core Measures Suspected Sepsis SIRS Temperature: Pulse: 126 Respiratory Rate: 18 Blood Pressure 134 /89 Mean: 104 Results/Orders Lab Results Laboratory Tests Test 07/11/22 00:49 Range/Units Influenza Type A (RT-PCR) Detected H Not Detecte Influenza Type B (RT-PCR) Not Detected Not Detecte SARS-CoV-2 RNA (RT-PCR) Not Detected Not Detecte My Orders Orders - JESUS BRITO MD Chest Pa/Lat (2 View) (07/11/22 01:00) Covid 19 Inhouse Test (07/11/22 01:00) Influenza A And B By Pcr (07/11/22 01:00) Isolation Central Supply Req (07/11/22 01:00) Ketorolac Injection (Toradol Injection) (07/11/22 01:00) Orphenadrine Inj (Ed Only) (Norflex Inje (07/11/22 01:00) Acetaminophen Tablet (Tylenol Tablet) (07/11/22 01:00) Oseltamivir 75 Mg Capsule (Tamiflu 75 (07/11/22 02:00) Medications Given in ED Current Medications Medications Dose Ordered Sig/Michelle Route Start Time Stop Time Status Last Admin Dose Admin Acetaminophen 1,000 mg ONCE ONCE PO 07/11/22 01:00 07/11/22 01:03 DC 07/11/22 01:08 1,000 MG Ketorolac Tromethamine 30 mg ONCE ONCE IM 07/11/22 01:00 07/11/22 01:03 DC 07/11/22 01:09 30 MG Orphenadrine Citrate 60 mg ONCE ONCE IM 07/11/22 01:00 07/11/22 01:03 DC 07/11/22 01:08 60 MG Oseltamivir Phosphate 75 mg ONCE ONCE PO 07/11/22 02:00 07/11/22 02:01 07/11/22 01:50 75 MG Vital Signs/I&O 07/11/22 07/11/22 00:45 01:08 Temp 38.7 38.7 Pulse 126 Resp 18 B/P (MAP) 134/89 (104) Pulse Ox 96 O2 Delivery Room Air Capillary Refill : Less Than 3 Seconds Blood Pressure Mean: 104 Progress Note : Time: 01:31 Progress Note Patient seen and examined by me, 51-year-old with flulike symptoms. Evaluation today includes physical exam, flu, COVID testing as well as a two-view chest x- ray. Physical examination pertinent for tachycardia, clear lungs. No lower extremity calf swelling or tenderness. Fever 101. Differential diagnosis inclu sherron prolonged COVID, influenza, pneumonia, viral syndrome. COVID and flu testing show positive influenza A, negative COVID. Chest x-ray is reviewed by me, no effusions, infiltrates. Normal mediastinal structures. Patient is treated with Toradol, Norflex and a gram of Tylenol. Offered Tamiflu and she would like to take it. First dose here in the ER. Diagnostic Imaging Diagonstic Imaging: Xray Plain Films/CT/US/NM/MRI: chest Comments CXR - interpreted by me - no infiltrates, effusions; normal mediastinal structures. Departure Impression Primary Impression: Influenza A Disposition: 01 HOME, SELF-CARE Condition: Stable Departure-Patient Inst. Decision time for Depature: 01:34 Referrals: NOEMY CURRY APRN (PCP/Family) Primary Care Physician Patient Instructions: Flu, Adult (DC) Add. Discharge Instructions: Drink plenty of fluids to stay well hydrated. Alternate Ibuprofen 3 pills (600mg) every 6 hours with food with extra strength Tylenol 2 pills every 6 hours. (Ibuprofen at 3, Tylenol at 6, Ibuprofen at 9, etc...) You can use over the counter Theraflu (be mindful of tylenol/acetaminophen in this product). Continue your routine, home medications. Return to the Emergency Department for any new, concerning or emergent complaints. Scripts Oseltamivir Phosphate (Tamiflu) 75 Mg Cap 75 MG PO BID for 5 Days, #9 CAP Prov: JESUS BRITO MD 07/11/22 Work/School Note: Work Release Form Date Seen in the Emergency Department: Jul 11, 2022 Return to Work: Jul 14, 2022 JESUS BRITO MD Jul 11, 2022 01:07
[2022-07-11] MEDS ORDERED: OSLT75C PO ×2 (01:46→01:53)
[2022-07-11 01:51] VITALS: BP 132/87
[2022-07-11] MEDS ORDERED: OSELTAMIVIR 75 MG (TAMIFLU) CAPSULE PO ONE (02:00)
--- NOTE | 2022-07-11 06:10 | Diagnostic Imaging Report ---
Indication: Cough and fever PA and lateral chest 1:29 AM Heart size and pulmonary vascularity are normal. Lungs are clear. There are no effusions or pneumothoraces. IMPRESSION: Negative chest Dictated by: Dictated on workstation # [id number]
== END 2022-07-11 01:53 | disposition home or self-care (01) ==
LOC: EDUNIT# 00:39 → ER 00:43
DX: J10.1 Influenza due to other identified influenza virus with other respiratory manifestations (principal); Z20.822 Contact with and (suspected) exposure to COVID-19
CPT/HCPCS: 71046; 87636